=== PATIENT | male | born 1965 | race Caucasian/White ===

== ENCOUNTER 2021-05-19 15:34 | Emergency (ER) | payer SELFPAY ==
[2021-05-19] MEDS ORDERED: Take Home: Amoxicillin 875 MG Tab, 2 Tab Pack PO ONE (16:22)
[2021-05-19] MEDS ORDERED: Take Home: Acetaminophen/HYDROcodone 325-5 MG, 5 Tab Pack PO ONE (16:22)
== END 2021-05-19 16:58 | disposition home or self-care (01) ==
LOC: VM.ED 15:34
DX: K02.9 Dental caries, unspecified (principal); R03.0 Elevated blood-pressure reading, without diagnosis of hypertension
CPT/HCPCS: 99282; 99283; A9270-GY

== ENCOUNTER 2024-11-12 06:49 | Day surgery (SDC) | payer BC, OTHER ==
[2024-11-12] MEDS: Lactated Ringers 1,000 ML IV SCH (07:10)
[2024-11-12] MEDS ORDERED: Propofol 200 MG/20 ML SDV ONE ×2 (08:29→09:05)
[2024-11-12] MEDS ORDERED: Midazolam 1 MG/ML 2 ML SDV ONE (08:29)
[2024-11-12] MEDS ORDERED: fentaNYL 100 MCG/2 ML SDV ONE (08:32)
== END 2024-11-12 10:02 | disposition home or self-care (01) ==
LOC: VM.SDS 06:49
PROVIDERS: ATTEND Student in an Organized Health Care Education/Training Program
DX: Z12.11 Encounter for screening for malignant neoplasm of colon (principal); D12.2 Benign neoplasm of ascending colon; D12.0 Benign neoplasm of cecum; D12.3 Benign neoplasm of transverse colon; D12.5 Benign neoplasm of sigmoid colon; D12.8 Benign neoplasm of rectum; R19.5 Other fecal abnormalities; I10 Essential (primary) hypertension; E66.9 Obesity, unspecified; F17.210 Nicotine dependence, cigarettes, uncomplicated; Z79.82 Long term (current) use of aspirin; Z68.39 Body mass index [BMI] 39.0-39.9, adult; Z79.899 Other long term (current) drug therapy
CPT/HCPCS: 00811; J2250; J2704; J3010; J7120